=== PATIENT | female | born 1965 | race Caucasian/White ===

== ENCOUNTER 2025-06-14 18:13 | Emergency (ER) | payer BC, SELFPAY ==
[2025-06-14 18:13] VITALS: BMI 22.8
[2025-06-14 18:15] VITALS: BP 190/93
--- NOTE | 2025-06-14 18:32 | EDRN ---
Dr. Bustillo in room w /pt at this time.
--- NOTE | 2025-06-14 18:56 | ED.GENMED ---
History of Present Illness
General
Chief Complaint: Blood Pressure Problem
Source: patient
Exam Limitations: none
Time Seen by Provider: 06/14/25 18:30
History of Present Illness
History of Present Illness:
See MDM
Past History
Past History
ED Past Medical History: Cancer, Hypothyroidism and Psychiatric
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
Social History
Tobacco: Non-smoker
Alcohol: Occasional
Drug: None
Personal:
Living: with family
Phy Exam
Physical Exam
Physical Exam:
See MDM
Course
Orders/Labs/Results
Orders:
Orders
06/14/25 18:17
Electrocardiogram (*1) Urgent
Reason for Study: Chest Pain
EKG- Treatment ONCE
Test Result ONCE
06/14/25 18:54
0.9% Sodium Chloride 1000 ml [Nss] 1,000 ml IV BOLUS
HydrOXYZINE [Atarax] 25 mg PO NOW STA
06/14/25 19:16
Complete Blood Count/With Diff Urgent
Comprehensive Metabolic Panel Urgent
HCG, Serum Qualitative Screen Urgent
Comment: Notify provider if positive test present
Troponin I Urgent
Abnormal Lab Results
06/14/25
19:16
RBC 3.76 L 10^6/uL
(4.20-5.40)
Hgb 11.1 L g/dL
(12.0-16.0)
Hct 33.8 L %
(37.0-47.0)
MCHC 32.8 L g/dL
(33.0-37.0)
MPV 10.6 H fL
(7.4-10.4)
Absolute Monos (auto) 0.7 H 10^3/uL
(0.1-0.6)
Monocytes % 9.7 H %
(1.7-9.3)
BUN 18 H mg/dl
(7-17)
AST 52 H U/L
(14-36)
ALT 48 H U/L
(0-35)
06/14/25 19:16
06/14/25 19:16
Vital Signs
Initial and Last Documented VS:
Initial Vital Signs
Temp Pulse Resp BP Pulse Ox
97.5 F 90 16 190/93 99
06/14/25 18:15 06/14/25 18:15 06/14/25 18:15 06/14/25 18:15 06/14/25 18:15
Last Documented Vital Signs
Temp Pulse Resp BP Pulse Ox
97.6 F 73 18 143/73 98
06/14/25 19:25 06/14/25 20:00 06/14/25 20:00 06/14/25 20:00 06/14/25 19:28
MDM/Problems Addressed
Differential Diagnosis Includes:
Note:
CHIEF COMPLAINT(S)
Palpitations, elevated blood pressure
HISTORY OF PRESENT ILLNESS
The patient is a 59-year-old female with a history of hypertension, aortic sclerosis, and a recent aortic endarterectomy 4 months ago. She presented with palpitations and elevated blood pressure, measured at 186/83 mmHg on arrival, accompanied by a
nosebleed that was difficult to control. The patient reported experiencing these symptoms after being at home for the day. She has a significant family history of cardiovascular issues, including an aortic dissection, coronary artery embolism, and
bypass surgeries among her siblings.
The patient has undergone a cardiac catheterization recently, around the end of November, to evaluate chest pain and anxiety-induced symptoms, where the right coronary artery was affected. Due to collaterals, she did not require stent. She also has a
history of anxiety, which she correlates with her current symptoms. She has previously been diagnosed with aortic sclerosis and underwent radiation therapy for lung disease at the age of 16.
She reports a murmur and has been advised by her form setter steel forms that previous chest radiation may have contributed to her current heart condition. The patient is athletic, experiencing pounding and shock-like sensations in her heart that were ongoing
throughout the day. She attributes these episodes possibly to her aortic stenosis and was advised to stay hydrated to avoid symptoms.
The patient also mentioned experiencing side effects possibly related to montelukast (Singulair). These side effects include muscle cramping, which was particularly noticeable.
PAST MEDICAL AND SURGICAL HISTORY
- Aortic sclerosis
- History of hypertension
- Prior cardiac catheterization
- Two cancer diagnoses
- Recent aortic endarterectomy
SOCIAL DETERMINANTS AFFECTING HEALTH
The patient reports experiencing significant stress due to family history of serious medical issues, including the recent deaths of family members. Additionally, she describes job-related stress, particularly around holiday periods, and also noted
that she has a stressful job.
CHRONIC MEDICAL CONDITIONS SIGNIFICANTLY AFFECTING CARE
Chronic conditions affecting care include hypertension, aortic sclerosis, and anxiety.
PHYSICAL EXAM
General: Alert, no acute distress.
Skin: Warm, dry.
Head: Normocephalic, atraumatic
Neck: Appears supple, trachea midline.
Eyes, Ears, Nose, Mouth, and Throat: Moist mucous membranes
Cardiovascular: No signs of cyanosis. Holosystolic murmur noted
Respiratory: Respirations are non-labored.
Abdomen: Non-distended
Musculoskeletal: No deformities. No leg edema
Neurological: No focal neurological deficit observed.
Psychiatric: Cooperative, appropriate mood and affect.
PLAN
- Blood work to assess cardiovascular health, particularly checking for signs of myocardial ischemia or myocardial infarction.
- Administration of intravenous fluids to manage possible dehydration and assess its impact on symptoms.
- Consideration of prescribing hydroxyzine for anxiety management, given its [id number] nature.
DIFFERENTIAL DIAGNOSIS
The Differential Diagnosis includes, in no particular order and is not limited to:
- Hypertensive crisis
- Anxiety disorder exacerbating cardiovascular symptoms
- Aortic stenosis with possible worsening
- Cardiac arrhythmia
- Drug-induced symptoms
- Coronary artery disease
- Heart failure
- Electrolyte imbalance due to dehydration
- Psychosomatic disorder
- Pericarditis
SUMMARY OF ENCOUNTER
The patient presented with concerns over palpitations, elevated blood pressure, and nosebleed, alongside a significant family history of cardiovascular disease. She has a history of aortic sclerosis and previous cardiac catheterization, with recent
anxiety related to her symptoms. Examination revealed a significant murmur, possibly from aortic stenosis. Bloodwork and hydration were initiated to rule out myocardial issues and manage anxiety-related hypertension.
MEDICATION RECONCILIATION
- Hydroxyzine prescribed for anxiety management.
- Monitoring the effects of montelukast for reported side effects.
MEDICAL DECISION MAKING
1. Number and Complexity of Problems Addressed:
Chronic conditions affecting care include hypertension, aortic sclerosis, and anxiety. Consideration of underlying psychosomatic factors exacerbating symptoms.
2. Data:
- Category 1: Tests and documents include blood work for cardiovascular assessment.
- Category 3: Discussion of management and anxiety treatment options considered, including hydroxyzine.
3. Risk:
Consideration of anxiety management with hydroxyzine due to current stress levels and impact on blood pressure. Evaluated the need for blood pressure management in the context of underlying anxiety.
DIAGNOSIS
- Essential hypertension (ICD-10: I10)
- Aortic stenosis (ICD-10: I35.0)
- Anxiety disorder (ICD-10: F41.9)
EKG
My independent EKG interpretation is:
- Rhythm: Normal sinus rhythm
- Heart Rate: 88 beats per minute
- [place]: Normal
- ST Segment: No ST elevation
- Additional Findings: No activity
SUMMARY OF ENCOUNTER
The patient presented to the emergency department with chest pressure, which did not seem related to physical activity. She experienced anxiety and her blood pressure was elevated. Upon administration of intravenous fluids and a dose of hydroxyzine,
her blood pressure improved. Upon reexamination, the patient reported feeling better and expressed comfort with being discharged home.
DISPOSITION
Discharge
ASSESSMENT
The patients symptoms were indicative of an anxiety episode exacerbating her hypertensive state.
EMERGENCY TREATMENTS ADMINISTERED
Hydroxyzine was administered to alleviate anxiety symptoms.
PLAN
The patient was evaluated and, upon improvement of symptoms with treatment, deemed safe for discharge with instructions to follow-up with her primary care physician.
MEDICATION RECONCILIATION
Hydroxyzine was administered during the visit for anxiety relief.
MEDICAL DECISION MAKING
-Complexity of Data Reviewed: Chronic conditions affecting care include hypertension and anxiety. Differential diagnosis considered included hypertensive crisis, anxiety disorder exacerbating cardiovascular symptoms, cardiac arrhythmia, and
drug-induced symptoms.
-Data:
Category 1
My independent interpretation of EKG indicated a normal sinus rhythm with 88 beats per minute, normal axis, no ST elevation or additional findings.
-Risk: Consideration of Admission/Observation: Escalation of care including admission/observation was considered given the complexity and risk of the patients presenting complaint and underlying comorbidities. However, ultimate decision was made for
outpatient management with close follow-up due to symptom control upon reevaluation, stable vitals, and reliable agreement to follow-up directions.
DIAGNOSIS
- Essential hypertension (ICD-10: I10)
- Anxiety disorder (ICD-10: F41.9)
*Pulse Oximetry
SaO2: 99
Oxygen Mode of Delivery: Room air
Patient hypoxic: no
*Critical Care Note
Total Time (30-74mins, 75-104mins- exclusive of procedures): Not Applicable
ED Attending Note
-
Portions of this chart may have been created with voice recognition software.� Occasional wrong word or��sound alike� substitutions may have occurred due to the inherent limitations of voice recognition software.
Discharge Plan
Departure
Patient Disposition: Home (Routine Discharge)
Date of Disposition: 06/14/25
Time of Disposition: 20:08
Patient with high blood pressure during this ER visit?: Yes
Discharge Problem:
Chest pressure
Instructions: BLOOD PRESSURE
Prescriptions:
New
hydroxyzine HCl 25 mg tablet
25 mg PO BID PRN (Reason: anxiety) Qty: 20 0RF
No Action
calcium 500 mg Tablet
500 mg PO DAILY
levothyroxine [Synthroid] 100 mcg Tablet
100 mcg PO DAILY
ezetimibe [Zetia] 10 mg Tablet
10 mg PO DAILY
Vitamin D3
atorvastatin 10 mg Tablet
10 mg PO QPM
clopidogrel [Plavix] 75 mg Tablet
75 mg PO DAILY
aspirin 81 mg Tablet
81 mg PO DAILY
zinc
Referrals:
UNKNOWN - PT DOES,NOT KNOW [Family Provider]
Activity Restrictions/Additional Instructions:
Please return for any worsening symptoms.
You may return at any time if you have further concerns.
Please follow up with your doctor at the first available appointment, preferably this week.
Thank you for choosing [facility].
Interventions
Interventions:
*Risk Screen - Suicide Last Done: 06/14/25 18:15
*General Assessment Last Done: 06/14/25 19:31
*Neglect/Abuse Screening Last Done: 06/14/25 18:15
*ED COVID-19 Vaccine History Last Done: 06/14/25 19:31
*ED Influenza Vaccine History Last Done: 06/14/25 19:31
[facility] Risk Assessment Tool Last Done: 06/14/25 18:13
ED- Cardiac Assessment Last Done: 06/14/25 19:28
ED- Neurological Assessment Last Done: 06/14/25 19:28
ED- Pulmonary Assessment Last Done: 06/14/25 19:28
Discharge Date and Time
Print Language: KENYAN
[2025-06-14 19:00] VITALS: BP 144/66
[2025-06-14] MEDS: NSS 1000 IV (19:17)
[2025-06-14] MEDS: ATARAX 25 MG PO (19:17)
[2025-06-14 19:34] LABS: Hematocrit 33.8 % (37.0-47.0); Hemoglobin 11.1 g/dL (12.0-16.0); Mean Corp Hgb Conc. 32.8 g/dL (33.0-37.0); Mean Corpuscular Volume 89.9 fL (81.0-99.0); Nucleated Red Blood Cells % 0 %; Platelet Count 315 10^3/uL (130-400); Red Cell Dist. Width 13.5 % (11.5-14.5)
[2025-06-14 19:41] LABS: HCG, Serum Qualitative Screen Negative
[2025-06-14 19:47] LABS: ALT (SGPT) 48 U/L (0-35); AST (SGOT) 52 U/L (14-36); Albumin 4.1 g/dl (3.5-5.0); Alkaline Phosphatase 108 U/L (38-126); Blood Urea Nitrogen 18 mg/dl (7-17); Calcium 9.7 mg/dl (8.4-10.2); Carbon Dioxide 28 mmol/L (22-30); Chloride 107 mmol/L (98-107); Estimated Creatinine Clearance 95 ml/min; Glucose 90 mg/dl (70-99); Potassium 4.2 mmol/L (3.5-5.1); Sodium 139 mmol/L (135-145); Total Protein 6.7 g/dl (6.3-8.2); eGFR > 60.00
[2025-06-14 19:50] LABS: Troponin I 0.020 ng/ml
[2025-06-14 20:00] VITALS: BP 143/73
== END 2025-06-14 20:34 | disposition home or self-care (01) ==
LOC: EMR 18:13
PROVIDERS: Emergency Medicine; EMERGENCY PHYSICIAN Student in an Organized Health Care Education/Training Program
DX: R07.89 Other chest pain (principal); I10 Essential (primary) hypertension; F41.9 Anxiety disorder, unspecified; E03.9 Hypothyroidism, unspecified; Z90.81 Acquired absence of spleen; Z92.3 Personal history of irradiation
CPT/HCPCS: 99284; 96360; 80053; 84484; 84703; 85025; 93005